=== PATIENT | male | born 1955 | race Two or more races ===

== ENCOUNTER 2021-06-07 10:28 | Emergency (ER) | payer SELFPAY ==
[~2021-06-07] VITALS: Ht 185.4 cm; Wt 96.9 kg
[2021-06-07 10:45] VITALS: BP 135/64
--- NOTE | 2021-06-07 11:09 | PHYS DOC ---
Past Medical History Past Medical History: No Pertinent History Additional Past Surgical Histo: throat surgery in childhood Smoking Status: Never Smoker Alcohol Use: Occasionally Drug Use: Marijuana General Adult EDM: Chief Complaint: SKIN PROBLEM HPI: HPI: Patient is a 65 year old male who presents with a rash over his chest, upper extremities and face. Patient also reports associated extreme dry skin and some swelling on his face. He denies pain, but reports discomfort on his face secondary to the dry skin. Patient's son is at bedside and aids in providing history as well. Patient reports he had some molded blackberries a couple of days ago, but has not eaten any new foods. He has not used any new detergents, but states that he got a new body soap and shampoo, which is [employer] brand. Patient has not used the soap in the past. Patient denies sore throat, oral mucosa swelling, tongue swelling, shortness of breath, cough, difficulty breathing, nausea, vomiting, diarrhea, abdominal pain. Review of Systems: Review of Systems: Constitutional: Denies fever, chills or generalized weakness Eyes: Denies change in visual acuity, visual field deficits or discharge HENT: See HPI Respiratory: See HPI Cardiovascular: Denies chest pain, palpitations or edema GI: See HPI : Denies dysuria or hematuria Musculoskeletal: Denies back pain or joint pain Integument: See HPI Neurologic: Denies headache, focal weakness or sensory changes Heart Score: C/O Chest Pain: No Allergies: Allergies: Allergies Coded Allergies Type Severity Reaction Last Updated Verified No Known Drug Allergies 06/07/21 No Physical Exam: PE: Constitutional: Well developed, well nourished, no acute distress, non-toxic appearance. HENT: Normocephalic, atraumatic, bilateral external ears without deformity or discharge, oropharynx moist, no oral exudates, no oropharyngeal swelling, no macroglossia, nose without deformity or discharge. Eyes: EOMI, conjunctiva normal, no discharge. Neck: Normal range of motion, no tenderness, trachea midline, supple, no stridor. Cardiovascular: Heart rate regular rhythm, no murmur. Lungs & Thorax: Bilateral breath sounds clear to auscultation. Abdomen: Bowel sounds normal, soft, no tenderness, no masses, no pulsatile masses. Skin: Skin from the upper neck to upper cheeks is dry, flaking and cracked with erythema. Upper chest and upper extremities have diffuse, blanching, slightly raised maculopapular rash without vesicles, bullae, drainage or central clearing. Rash does not follow dermatomal pattern. Back: No tenderness, no CVA tenderness. Extremities: No tenderness, no cyanosis, no clubbing, ROM intact, no edema. Neurologic: Alert and oriented x4, no focal deficits noted. Current Patient Data: Vital Signs: Vital Signs Date Time Temp Pulse Resp B/P (MAP) Pulse Ox O2 Delivery O2 Flow Rate FiO2 06/07/21 10:45 98.9 89 18 135/64 (87) 98 Room Air 98.9 Course & Med Decision Making: Course & Med Decision Making Pertinent Labs and Imaging studies reviewed. (See chart for details) Patient is an otherwise healthy 65-year-old male who presents with a two day history of rash across his upper body and face. Patient reports he had molded blackberries few days ago and began using a new body soap 3 days ago. Patient's history and exam is consistent with contact dermatitis. He is advised to use unscented, gentle soaps until the symptoms resolve. I also advised to use Eucerin or Aquaphor over the areas of dryness and irritation. Discussed keeping a log of foods and detergents/soaps/lotions to identify triggers in the future. Patient and his son at bedside understand and are agreeable discharge plan. Yohan Disclaimer: Yohan Disclaimer: This electronic medical record was generated, in whole or in part, using a voice recognition dictation system. Departure Departure Impression: Primary Impression: Contact dermatitis Qualified Codes: L24.89 - Irritant contact dermatitis due to other agents Disposition: HOME / SELF CARE / HOMELESS Condition: STABLE Patient Instructions: Contact Dermatitis, [id number] Additional Instructions: Debe usar jabon suave sin olor hasta que la erupcion mejore. [place] Aquaphor o Eucerin para la piel seca. Despues, escribe en un diario los jabones/detergentes/cremas que usa para identificar cosas que causan la erupcion. Regresa al departamento si los sintomas no mejore or si tiene sintomas nuevos. SHEN ARENAS Jun 07, 2021 11:09
== END 2021-06-07 11:15 | disposition home or self-care (01) ==
LOC: ER 10:28
DX: L24.89 Irritant contact dermatitis due to other agents (principal)
CPT/HCPCS: 99282